=== PATIENT | female | born 1985 | race African-American/Black ===

== ENCOUNTER 2019-10-06 13:34 | Emergency (ER) | payer OTHER ==
[~2019-10-06] VITALS: Ht 160 cm; Wt 113.6 kg
[2019-10-06 14:42] VITALS: BP 140/74
[2019-10-06] MEDS ORDERED: oxyCODONE IR 5 MG TABLET PO ONE (15:30)
--- NOTE | 2019-10-06 15:46 | RAD ---
Examination: KNEE LEFT 3V History: Surgery on 09/27/2019, fall, pain. Comparison/Correlation: None Findings: Total 3 images of the left knee were obtained including lateral view. Postoperative findings compatible with reported history of ACL reconstruction noted. Mild spurring of the patella. Joint spaces are adequate. Large knee joint effusion is present. Soft tissue gas is present. No acute fracture or bony destructive finding. Impression: Joint effusion. Soft tissue gas and postoperative findings corresponding to the very recent ACL reconstruction. Electronically signed by: Desean Cabrera MD (10/06/2019 3:43 PM) [facility]
--- NOTE | 2019-10-06 15:59 | PHYS DOC ---
Past Medical History Past Medical History: No Pertinent History Past Surgical History: Other Additional Past Surgical Histo: REPAIR ACL Alcohol Use: None Adult General Chief Complaint Chief Complaint: LOWER EXT PAIN HPI HPI Patient is a 33 year old female patient who presents to the ED today complaining of 10 out of 10 left anterior knee pain that began yesterday. Patient reports she had ACL repair yesterday in [place], she reports she was sent home on Celebrex, Tylenol 3, and Zofran. She reports this medications are not helping with her pain. She also reports she fell down twice yesterday. Patient reports the pain is worse on weight bearing. Review of Systems Review of Systems Constitutional: Denies fever or chills [] Musculoskeletal: Reports left knee pain Integument: Denies rash or skin lesions [] Neurologic: Denies headache, focal weakness or sensory changes [] All other systems were reviewed and found to be within normal limits, except as documented in this note. Current Medications Current Medications Current Medications Medications (Trade) Dose Ordered Sig/Nimesh Start Time Stop Time Status Last Admin Dose Admin Oxycodone HCl (Roxicodone) 5 mg 1X ONCE 10/06/19 15:30 10/06/19 15:31 DC 10/06/19 15:37 5 MG Allergies Allergies Allergies Coded Allergies Type Severity Reaction Last Updated Verified No Known Drug Allergies 10/06/19 No Physical Exam Physical Exam Constitutional: Well developed, well nourished, no acute distress, non-toxic appearance. [] Skin: Warm, dry, no erythema, no rash. [] Back: No tenderness, no CVA tenderness. [] Extremities: Left knee is in a knee immobilizer, surgical site was evaluated, the incisions are well approximated with Steri-Strips over them. No signs of infection. Limited range of motion to the left knee, +2 left pedal pulse. Cap refill less than 2 seconds the left lower extremity. Neurologic: Alert and oriented X 3, normal motor function, normal sensory function, no focal deficits noted. [] Psychologic: Affect normal, judgement normal, mood normal. [] Current Patient Data Vital Signs Vital Signs Date Time Temp Pulse Resp B/P (MAP) Pulse Ox O2 Delivery O2 Flow Rate FiO2 10/06/19 14:42 98.7 86 18 140/74 (96) 98 Room Air 98.7 EKG EKG [] Radiology/Procedures Radiology/Procedures []PROCEDURE: KNEE LEFT 3V Examination: KNEE LEFT 3V History: Surgery on 09/27/2019, fall, pain. Comparison/Correlation: None Findings: Total 3 images of the left knee were obtained including lateral view. Postoperative findings compatible with reported history of ACL reconstruction noted. Mild spurring of the patella. Joint spaces are adequate. Large knee joint effusion is present. Soft tissue gas is present. No acute fracture or bony destructive finding. Impression: Joint effusion. Soft tissue gas and postoperative findings corresponding to the very recent ACL reconstruction. Electronically signed by: Desean Pennington MD (10/06/2019 3:43 PM) [facility] DICTATED and SIGNED BY: DESEAN PENNINGTON MD DATE: 10/06/19 1543 Course & Med Decision Making Course & Med Decision Making Pertinent Labs and Imaging studies reviewed. (See chart for details) This is a 33-year-old female patient presenting to the ED today complaining of left knee pain that began yesterday, patient had ACL repair yesterday, she reports she fell down twice.. She reports her pain medicine which is Tylenol 3 and celebrex is not touching her pain. Left knee xray is negative for any acute findings. D/c to home. Instructed to contact her orthopedic doctor tomorrow morning and let them know about her pain. Dragon Disclaimer Dragtashia Disclaimer This electronic medical record was generated, in whole or in part, using a voice recognition dictation system. Departure Departure Impression: Primary Impression: Left knee pain Additional Impression: Fall Disposition: HOME, SELF-CARE Condition: STABLE Referrals: UNKNOWN PCP NAME (PCP) Call your Orthopedic doctor and follow-up as soon as possible Patient Instructions: Knee Pain, [id number] Additional Instructions: You were evaluated in the emergency room for left knee pain. Your left knee x- rays are negative for any acute findings. Please contact your orthopedic doctor tomorrow morning and let them know about your pain. Continue taking the medicine your doctor prescribed yesterday Problem Qualifiers Primary Impression: Left knee pain Chronicity: acute Qualified Codes: M25.562 - Pain in left knee Additional Impression: Fall Encounter type: initial encounter Qualified Codes: W19.XXXA - Unspecified fall, initial encounter WILLIAM MONTERROSO APRN Oct 06, 2019 15:59
== END 2019-10-06 16:18 | disposition home or self-care (01) ==
LOC: ER 13:34
DX: M25.562 Pain in left knee (principal); G89.11 Acute pain due to trauma; Z98.890 Other specified postprocedural states; W18.39XA Other fall on same level, initial encounter; Y93.89 Activity, other specified; Y92.89 Other specified places as the place of occurrence of the external cause; Y99.8 Other external cause status
CPT/HCPCS: 73562; 99284